=== PATIENT | male | born 1970 | race Caucasian/White ===

== ENCOUNTER 2020-12-23 23:54 | Emergency (ER) | payer OTHER, SELFPAY ==
--- NOTE | ~2020-12-23 | XR_ITS ---
EXAMINATION: XR wrist LT min 3V EXAM DATE: 12/24/2020 00:23 INDICATION: Pain/swelling on posterior lateral side of wrist after fall . Initial encounter. TECHNIQUE: Left wrist frontal, frontal with ulnar deviation, oblique and lateral projections obtained and reviewed. There is no prior study for comparison. FINDINGS: Left wrist scapholunate joint space is maintained. Probable acute triquetral fracture ident ified dorsally on the lateral projection. There is overlying soft tissue swelling. This finding has b een indicated, marked on the examination for review, clinical correlation. Surgical clips along the v olar aspect of the forearm. IMPRESSION: Probable acute left triquetral fracture dorsally. I discussed this with emergency room Dr. Bermeo at 12/24/2020 08:29 CDT . Reviewed, dictated and finalized at location A.
[2020-12-24 00:04] VITALS: BP 171/103; PULSE 96; RESP 17; TEMP 37.4; O2SAT 96
--- NOTE | 2020-12-24 00:16 | PC.NURSE ---
Patient taken to xray.
[2020-12-24] MEDS: HYDROcodone/acetaminophen (*CRX) 5-325 MG TABLET 1 TAB PO (00:22)
--- NOTE | 2020-12-24 01:18 | ED.UPPEXIN ---
HPI - Extremity Injury (Upper) General Chief Complaint: Extremity Injury, Upper Stated Complaint: I think i broke my wrist Time Seen by Provider: 12/24/20 00:04 Related Data Allergies Allergy/AdvReac Type Severity Reaction Status Date / Time Penicillins Allergy Mild Swelling Verified 12/24/20 00:08 lisinopril Allergy Swelling Verified 12/24/20 00:08 Course Vital Signs Vital signs: Vital Signs Temperature 99.3 F 12/24/20 00:04 Pulse Rate 96 12/24/20 00:04 Respiratory Rate 17 12/24/20 00:04 Blood Pressure 171/103 H 12/24/20 00:04 Pulse Oximetry 96 12/24/20 00:04 Temperature 99.3 F 12/24/20 00:04 Pulse Rate 96 12/24/20 00:04 Respiratory Rate 17 12/24/20 00:04 Blood Pressure 171/103 H 12/24/20 00:04 Pulse Oximetry 96 12/24/20 00:04 Discharge Plan Discharge Clinical Impression: Sprain and strain of wrist Patient Disposition: Home, Self-Care Condition: Stable Instructions: Wrist Sprain (ED) Additional Instructions: Obtain a wrist splint [facility] or [facility] to help immobilize your wrist. Continue to elevate the affected extremity and apply ice to help with swelling. Take ibuprofen to help with your swelling and pain but also take [place] as needed for breakthrough pain. If your pain is not improving you need to follow-up with your primary care physician. Prescriptions: New hydrocodone-acetaminophen 5-325 mg tablet 1 tablet PO Q6H PRN (Reason: pain) Qty: 12 RF: 0 ibuprofen 600 mg tablet 600 mg PO TID Qty: 21 RF: 0 Follow-up/Referrals: PHYSICIAN NOT ON STAFF,NONSTAFF [Primary Care Provider] - 1 Week
== END 2020-12-24 01:29 | disposition home or self-care (01) ==
PROVIDERS: Emergency Provider Emergency Medicine
DX: S63.502A Unspecified sprain of left wrist, initial encounter (principal); S66.912A Strain of unspecified muscle, fascia and tendon at wrist and hand level, left hand, initial encounter; R93.6 Abnormal findings on diagnostic imaging of limbs; W01.0XXA Fall on same level from slipping, tripping and stumbling without subsequent striking against object, initial encounter
CPT/HCPCS: 73110; 99283; A4565; A9270

== ENCOUNTER 2022-04-20 13:15 | Emergency (ER) | payer MEDICAID, SELFPAY ==
--- NOTE | ~2022-04-20 | CT_ITS ---
EXAMINATION: CT brain wo con DATE: 04/20/2022 14:50 INDICATION: Headache. Blurry vision. TECHNIQUE: Computed tomography (CT) of the head was performed without intravenous contrast. The mA wa s adjusted according to patient size. Iterative reconstruction technique was employed. The dose-lengt h product was 605.33 mGy-cm. COMPARISON: None FINDINGS: There is no intracranial hemorrhage, acute infarction, or abnormal intracranial mass lesion . The ventricles are normal in size. There is mild mucosal thickening in the paranasal sinuses. There is a trace right mastoid effusion. The orbits are normal. IMPRESSION: 1. Normal brain. Reviewed, dictated and finalized at location A. [facility] IMPRESSION: 1. Normal brain.
[2022-04-20 13:23] VITALS: BP 153/83; PULSE 78; RESP 18; TEMP 36.1; O2SAT 98
--- NOTE | 2022-04-20 14:45 | ED.HA ---
HPI - Headache General Chief Complaint: Headache Stated Complaint: blurred vision/headache Time Seen by Provider: 04/20/22 14:05 History of Present Illness HPI Narrative: Patient is a 52-year-old male presenting with headache and blurry vision. Patient states that for the last 2 to 3 months he has had intermittent headaches that are worse in the morning and evenings. States that he takes Excedrin during the day and this temporarily provides relief. States that the headaches have been increasing in frequency over the last several weeks. States that about a week ago he developed bilateral blurry vision that also comes and goes. He denies numbness, weakness, speech changes, ataxia, eye pain. He denies fevers or chills, nuchal rigidity, vomiting. States that he does sometimes feel nauseated in the morning. Denies chest pain, shortness of breath, cough, abdominal pain, dysuria, leg swelling. Related Data Allergies Allergy/AdvReac Type Severity Reaction Status Date / Time Penicillins Allergy Mild Swelling Verified 04/20/22 14:14 lisinopril Allergy Swelling Verified 04/20/22 14:14 Review of Systems Review of Systems: All systems reviewed & are unremarkable except as noted in HPI and below Exam Narrative: GENERAL: Well-appearing, well-nourished, and in no acute distress. HEAD: Normocephalic, atraumatic. EYES: PERRLA and EOMI. ENT: Nares clear, no rhinorrhea or epistaxis. Mucous membranes moist. NECK: Supple. CHEST: Clear to auscultation. No respiratory distress. HEART: Regular rate and rhythm. No murmur heard. Normal peripheral pulses. ABDOMEN: Soft, nontender, nondistended, normal active bowel sounds. EXTREMITIES: Normal range of motion. No edema. SKIN: Warm, dry, no rash. NEURO: No focal deficits. Alert and oriented x3. PSYCH: Normal mood and affect. Course Vital Signs Vital signs: Vital Signs Temperature 96.9 F L 04/20/22 13:23 Pulse Rate 78 04/20/22 13:23 Respiratory Rate 18 04/20/22 13:23 Blood Pressure 153/83 H 04/20/22 13:23 Pulse Oximetry 98 04/20/22 13:23 Oxygen Delivery Room Air 04/20/22 13:23 Temperature 96.9 F L 04/20/22 13:23 Pulse Rate 65 04/20/22 15:40 Respiratory Rate 19 04/20/22 15:40 Blood Pressure 139/85 04/20/22 15:40 Pulse Oximetry 98 04/20/22 15:40 Oxygen Delivery Room Air 04/20/22 13:23 MDM - Headache MDM Narrative Medical decision making narrative: Patient is a 52-year-old male presenting with intermittent headaches and blurry vision. Patient is hypertensive, his vitals are within normal limits. Exam is unremarkable. Neurologically intact. Visual acuity 20/20 OU, 20/30 OD, 20/[address] head shows no acute abnormalities. Blood work is unremarkable. Feel patient is safe for outpatient management. States he has not seen his PCP for many years and he needs a new one. We will provide new primary care number as well as ophthalmology. Lab Data 04/20/22 14:55 04/20/22 14:55 Labs: Lab Results 04/20/22 04/20/22 Range/Units 14:55 14:55 WBC 10.1 H (4.5-10.0) K/mm3 RBC 4.82 (4.6-6.20) M/mm3 Hgb 14.5 (14.0-18.0) g/dL Hct 44.2 (42.0-52.0) % MCV 91.7 (80-100) fl MCH 30.1 (26-34) pg MCHC 32.8 (32-36) g/dl RDW 13.6 (11.5-14.5) % Plt Count 293 (150-375) k/mm3 MPV 10.5 H (7.4-10.4) fl Immature Gran % (Auto) 0.4 (0-0.5) % Neut % (Auto) 59.2 (45.5-73.1) % Lymph % (Auto) 29.1 (18.3-44.2) % [place] % (Auto) 8.0 (2.6-8.5) % Eos % (Auto) 2.6 (0-4.4) % Baso % (Auto) 0.7 (0.2-1.2) % Lymph # (Auto) 2.93 (0.9-3.2) K/mm3 [place] # (Auto) 0.8 H (0.1-0.6) K/mm3 Eos # (Auto) 0.3 (0-0.3) K/mm3 Baso # (Auto) 0.1 (0.0-0.1) K/mm3 Abs Immat Gran (auto) 0.04 H (0.00-0.031) K/mm3 Absolute Neuts (auto) 6.0 (1.3-6.7) K/mm3 Absolute Nucleated RBC 0.0 (0.0-0.012) K/mm3 Nucleated RBC % 0.0 (0.0-0.2) % Sodium 139 (137-145) mmol/L Potassium 4.3 (3.4-5
[2022-04-20] MEDS: KETOROLAC 15 MG/ML VIAL (*BKC) IV PUSH (14:58)
[2022-04-20] MEDS: SODIUM CHLORIDE 0.9% IV 1,000 ML 999 ML IV CONT (14:58)
[2022-04-20 15:00] VITALS: PULSE 63; RESP 22; O2SAT 98
[2022-04-20 15:05] LABS: Basophils Absolute Auto 0.1 K/mm3 (0.0-0.1); Basophils Percent Auto 0.7 % (0.2-1.2); Eosinophils Absolute Auto 0.3 K/mm3 (0-0.3); Eosinophils Percent Auto 2.6 % (0-4.4); Hematocrit 44.2 % (42.0-52.0); Hemoglobin 14.5 g/dL (14.0-18.0); Immature Granulocyte Absolute 0.04 K/mm3 (0.00-0.031); Immature Granulocyte Percent A 0.4 % (0-0.5); Lymphocytes Absolute Auto 2.93 K/mm3 (0.9-3.2); Lymphocytes Percent Auto 29.1 % (18.3-44.2); Mean Corpuscular HGB Conc 32.8 g/dl (32-36); Mean Corpuscular Hemoglobin 30.1 pg (26-34); Mean Corpuscular Volume 91.7 fl (80-100); Mean Platelet Volume 10.5 fl (7.4-10.4); Monocytes Absolute Auto 0.8 K/mm3 (0.1-0.6); Neutrophils Percent Auto 59.2 % (45.5-73.1); Platelet Count Result 293 k/mm3 (150-375); Red Blood Count 4.82 M/mm3 (4.6-6.20); Red Cell Distribution Width 13.6 % (11.5-14.5); White Blood Count 10.1 K/mm3 (4.5-10.0)
[2022-04-20 15:26] LABS: Alanine Aminotransferase 37 U/L (6-50); Alkaline Phosphatase 60 U/L (38-126); Anion Gap 4 mmol/L (8-16); Aspartate Amino Transferase 31 U/L (17-59); Bilirubin,Total 0.4 mg/dL (0.2-1.3); Blood Urea Nitrogen 14 mg/dL (9-20); Calcium 8.7 mg/dL (8.4-10.2); Carbon Dioxide 31 mmol/L (22-30); Chloride 104 mmol/L (98-107); Estimated CRCL calculation 109 ml/min; Estimated Glomerular Filt Rate > 60; Glucose 87 mg/dL (65-110); Potassium 4.3 mmol/L (3.4-5.0); Sodium 139 mmol/L (137-145)
[2022-04-20 15:40] VITALS: BP 139/85; PULSE 65; RESP 19; O2SAT 98
[2022-04-20 16:15] VITALS: BP 130/83; PULSE 71; RESP 18; O2SAT 96
== END 2022-04-20 16:15 | disposition home or self-care (01) ==
PROVIDERS: Emergency Provider Emergency Medicine
DX: R51.9 Headache, unspecified (principal); H53.8 Other visual disturbances
CPT/HCPCS: 36415; 70450; 80053; 85025; 96361; 96365; 96375; 99284; J0131; J1885; J7030

== ENCOUNTER 2022-06-11 07:46 | Outpatient (CLI) | payer MEDICAID, SELFPAY ==
--- NOTE | ~2022-06-11 | CT_ITS ---
CT of the Abdomen and Pelvis: Indication: Right-sided bulging, hernia Technique: 2.5 mm axial scans were obtained through the abdomen and pelvis following intravenous adm inistration of 100 cc of Omnipaque 350. Dose reduction technique was used on this scan by utilizing a utomated exposure control and iterative reconstruction technique. The dose-length product (DLP) was 1 160.20 mGy-cm. Findings: Scans through the lung bases are unremarkable. The liver, spleen, pancreas, gallbladder, adrenals and kidneys are within normal limits. No evidence of aortic aneurysm. No lymphadenopathy. There are atherosclerotic calcifications of the aorta. No bowel obstruction or bowel wall thickening. There is no evidence to suggest acute appendicitis. Sm all fat-containing umbilical hernia noted. Images through the pelvis were performed. Fat-containing right inguinal hernia noted. Urinary bladder unremarkable. Prostate gland and seminal vesicles are unremarkable. No ascites. Impression: Small fat-containing right inguinal hernia. Small fat-containing umbilical hernia. Reviewed, dictated and finalized at [facility]. Impression: Small fat-containing right inguinal hernia. Small fat-containing umbilical hernia.
[2022-06-11 08:05] LABS: Estimated Glomerular Filt Rate > 60
== END 2022-06-11 07:47 | disposition home or self-care (01) ==
PROVIDERS: PCP Family Medicine; Visit Provider Surgery
DX: K40.90 Unilateral inguinal hernia, without obstruction or gangrene, not specified as recurrent (principal); K42.9 Umbilical hernia without obstruction or gangrene
CPT/HCPCS: 74177; Q9967

== ENCOUNTER 2022-07-19 15:30 | Outpatient (CLI) | payer OTHER, SELFPAY | END 2022-07-19 15:31 | disposition home or self-care (01) | LOC: ANHLAB 15:31 | PROVIDERS: PCP Family Medicine; Visit Provider Surgery | DX: K40.90 Unilateral inguinal hernia, without obstruction or gangrene, not specified as recurrent (principal); Z01.818 Encounter for other preprocedural examination | CPT/HCPCS: 36415; 86850; 86900; 86901 ==

== ENCOUNTER 2022-07-20 03:17 | Day surgery (SDC) | payer OTHER, SELFPAY ==
--- NOTE | 2022-07-16 16:55 | PM.SD2 ---
Same Day Admit/Disch: HPI History of Present Illness Chief complaint: right inguinal hernia and umbilical hernia Narrative: Yovani Helm Sr. is a 52 year old male who was seen in the office with bulge at the umbilicus that was getting bigger. He had also noticed a bulge and asymmetry in the right groin. Each of these can cause pain with coughing or straining. He was seen in the office and found to have both an umbilical hernia as well as a right inguinal hernia. He is taken to surgery now for robotic laparoscopic repair of his right inguinal hernia as well as open umbilical hernia repair with mesh. [facility] Past Medical History Medical History (Updated 07/20/22 @ 09:43 by Kee Willingham DO) Arthritis CAD (coronary artery disease) CVA (cerebral vascular accident) Heart attack HTN (hypertension) Surgical History Surgical History History of coronary artery bypass graft x 3 Family History Family History Father Hypertension Heart disease Mother Diabetes mellitus Hypertension Heart disease Social History Social History Smoking packs per day: 1.5 Smoking cigarettes per day: 30.0 Years smoked: 30 Smoking pack-years: 45.00 Smoking status: Former smoker Tobacco type: cigarettes Smoking end date: 04/01/17 Alcohol intake: current Substance use: never Lack of Transportation: No Lack of Food: Never True Current Housing: I Have Housing Concerned About Future Housing: No Difficulty Paying Gas/Electric Bills: No Difficulty Paying for Meds: No Currently Unemployed: No Education: High School Diploma/GED Difficulty w/ Childcare or Family Care: No Living arrangements: with family Gender identity (if verbalized by the patient): Male Spiritual care concerns: No Same Day Admit/Disch: Med Pre-admit Medications Home Medications Medication Instructions Recorded Confirmed Type ascorbic acid (vitamin C) 500 mg 500 mg PO BID 05/31/22 07/20/22 History capsule aspirin 81 mg tablet,delayed 81 mg PO DAILY 05/31/22 07/20/22 History release (Adult Aspirin Regimen) hydralazine 100 mg tablet 100 mg PO BID 05/31/22 07/20/22 History metoprolol succinate 100 mg 100 mg PO DAILY 05/31/22 07/20/22 History tablet,extended release 24 hr rosuvastatin 40 mg tablet 40 mg PO DAILY 05/31/22 07/20/22 History spironolactone 100 mg tablet 100 mg PO DAILY 05/31/22 07/20/22 History irbesartan 150 mg tablet 150 mg PO DAILY #30 tabs 07/18/22 07/20/22 Rx ketorolac 10 mg tablet 10 mg PO Q6H 4 days #16 tabs 07/20/22 Rx oxycodone-acetaminophen 5 mg-325 1 - 2 tablet PO Q6H PRN pain #15 07/20/22 Rx mg tablet (Percocet) tabs Exam Const: General: comfortable, no acute distress, alert and awake HENMT: Head: normocephalic and atraumatic Mouth: Yes Normal oral and palatal mucosa present Eyes: Conjunctivae: conjunctivae normal Pupils: Equal, round and reactive pupils present EOM: EOMs intact bilaterally Neck: Neck: normal visual inspection, no lymphadenopathy and nontender Chest: Other: Median sternotomy scar Resp: Effort & Inspection: normal respiratory effort Auscultation: clear to auscultation bilaterally Cardio: Rate: regular rate Rhythm: regular rhythm Heart sounds: no gallops, no murmurs and no rubs GI: Inspection: non-distended and visible herniation (Umbilical) GI Palp: Yes Soft to palpation, No Tenderness to palpation present (GI), No Hepatomegaly present, No Splenomegaly present and Yes Hernia present (Reducible umbilical hernia, 2 cm defect) : Male General Exam: Yes hernia (Reducible right inguinal hernia) Penis: Yes normal penis Scrotum: scrotum normal Testes: Testes normal Skin: Lesions: no lesions Rashes: no rashes Neuro: General: no focal motor deficits and CN's II-XI intact bilaterally Cranial nerves
[2022-07-18 17:28] VITALS: BMI 32.0
--- NOTE | 2022-07-18 17:56 | PC.NURSE ---
Report to the Outpatient Waiting Room, entrance under the green pavilion located off [facility], at time 0800 on date 07/20/22. Planned Procedure Time: 1000 Time changes happen often and if your time is changed the preop area will call you the afternoon before. - You and your visitor will be asked to self-screen and do not enter if you have any COVID symptoms. - A mask is optional within the hospital at this time. Patients may have clear liquids (water, carbonated beverages, clear teas, apple juice) until 3 hours prior to surgery with a maximum of 20 ounces. - No food from midnight until time of surgery - Infants may have breast milk until 4 hours before surgery, infant formula 6 hours prior to surgery. - Children will be allowed to drink immediately following surgery. If applicable, please bring a bottle or sippy cup to assist with drinking. Juice, water, soda, and popsicles are readily available. For infants on formula, please bring formula the day of surgery. Pacifiers are allowed. Take the following medications with a SIP of water the morning of surgery: _Metoprolol___ DO NOT STOP ANY OF YOUR OTHER PRESCRIPTION MEDICATIONS PRIOR TO SURGERY ?EXCEPT THE FOLLOWING Medications to discontinue per physician _Vitamin C Date to take last dose_07/18/22____ Please no make-up, nail sami, hairspray, perfume, deodorant, or body powder the day of surgery. No jewelry (including any body piercings) or valuables the day of surgery, leave them at home. Please take a shower or bath the night before, or the morning of, surgery with an antibacterial soap. Wear comfortable, loose fitting clothing. Children are encouraged to wear pajamas. - Jewelry must be removed prior to entering the operating room. Rings and piercings that are not removed may be cut off. - The hospital will not accept responsibility for valuables. - Please leave all valuables, including medications, at home the day of surgery. If you are going home after surgery, a licensed parts delivery driver must drive you home. - NO public transportation without another adult if you receive anesthesia. - We recommend that an adult stay with you for 24 hours following discharge. - We also recommend that you do not drive, make important decision, drink alcoholic beverages, or take any drugs that were not prescribed by your health care provider for at least 24 hours after your discharge time. For Pediatric surgeries, we recommend two adults accompany the child home. Follow any additional instructions given to you from your surgeon. If you or anyone in your household have experienced Covid symptoms in the past week, please notify your surgeon or the nurse liaison at the phone number below for possible testing. Telephone instructions given to _Yovani Helm_and asked if any additional questions and then verbalized understanding. Patient advised to call surgeon office or pre surgery nurse liaison [phone] if any additional questions.
[2022-07-20] VITALS (8 sets, daily range): BP systolic 126–152; BP diastolic 73–87; PULSE 58–72; RESP 12–18; TEMP 36.3–36.9; O2SAT 93–98
--- NOTE | ~2022-07-20 | XR_ITS ---
EXAMINATION: XR fluoroscopy no charge DATE: 07/20/2022 14:56 INDICATION: Lost needle TECHNIQUE: 2 fluoroscopic images of the central abdomen were obtained during procedure performed by Hieu Mae. Radiologist was not present for the imaging or procedure. The amount of fluoroscopy time use d during this procedure was 7.1 minutes. COMPARISON: None. FINDINGS: A curved suture needle projects over the paravertebral abdomen. No markers indicating the site to sug gest whether this is in the left or right abdomen. Likely laparoscopic ports instrumentation also pro ject over the central abdomen. The needle is not visualized on the final image and has likely been re moved. Correlate with procedure note for further detail. IMPRESSION: 1. Fluoroscopy utilized for identification of a lost needle in the central abdomen. See procedure not e for further detail. Reviewed, dictated and finalized at location A. IMPRESSION: 1. Fluoroscopy utilized for identification of a lost needle in the central abdo men. See procedure note for further detail.
--- NOTE | 2022-07-20 07:07 | ECG_ITS ---
Measurements Intervals [place] Rate: 57 P: 0 [place]: 187 QRS: 65 QRSD: 107 T: 60 QT: 417 QTc: 409 Interpretive Statements SINUS BRADYCARDIA OTHERWISE WITHIN NORMAL LIMITS NO PREVIOUS ECG AVAILABLE FOR COMPARISON Electronically Signed On 07-20-2022 15:30:06 CDT by Kayden Castillo M.D.
[2022-07-20] MEDS: ACETAMINOPHEN 500 MG TABLET 1000 MG PO (08:55)
[2022-07-20] MEDS: LACTATED RINGERS 1,000 ML 30 ML IV CONT ×3 (09:03→16:24)
[2022-07-20 09:35] LABS: Anion Gap 7 mmol/L (8-16); Blood Urea Nitrogen 18 mg/dL (9-20); Calcium 8.9 mg/dL (8.4-10.2); Carbon Dioxide 26 mmol/L (22-30); Chloride 104 mmol/L (98-107); Estimated CRCL calculation 137 ml/min; Estimated Glomerular Filt Rate > 60; Glucose 110 mg/dL (65-110); Potassium 4.5 mmol/L (3.4-5.0); Sodium 137 mmol/L (137-145)
--- NOTE | 2022-07-20 09:42 | WPDANESEPPF ---
Anes - Initial Pre Proc Eval Procedure: Operation Date: 07/20/22 10:00 Proposed Procedures p Robotic Laparoscopic Right Inguinal Hernia Repair, - Himanshu Mae MD s Open Umbilical Hernia Repair - Himanshu Mae MD Date/Time: 07/20/22 09:42 Surgeon: Himanshu Mae MD Pre Op Diagnosis: right inguinal hernia and umbilical hernia Patient Data Age: 52 Gender: M Height: 1.83 m Weight: 107.9 kg Last Vital Signs Temp 36.3 C L 07/20/22 09:07 Pulse 68 07/20/22 09:07 Resp 16 07/20/22 09:07 BP 152/87 H 07/20/22 09:07 Pulse Ox 96 07/20/22 09:07 O2 Del Method Room Air 07/20/22 09:07 Allergies Allergy/AdvReac Type Severity Reaction Status Date / Time Penicillins Allergy Mild Swelling Verified 07/20/22 08:27 lisinopril Allergy Swelling Verified 07/20/22 08:27 Home Medications Medication Instructions Recorded Confirmed Type ascorbic acid (vitamin C) 500 mg 500 mg PO BID 05/31/22 07/20/22 History capsule aspirin 81 mg tablet,delayed 81 mg PO DAILY 05/31/22 07/20/22 History release (Adult Aspirin Regimen) hydralazine 100 mg tablet 100 mg PO BID 05/31/22 07/20/22 History metoprolol succinate 100 mg 100 mg PO DAILY 05/31/22 07/20/22 History tablet,extended release 24 hr rosuvastatin 40 mg tablet 40 mg PO DAILY 05/31/22 07/20/22 History spironolactone 100 mg tablet 100 mg PO DAILY 05/31/22 07/20/22 History irbesartan 150 mg tablet 150 mg PO DAILY #30 tabs 07/18/22 07/20/22 Rx Laboratory Tests 07/20/22 08:56 Sodium 137 mmol/L mmol/L (137-145) Potassium 4.5 mmol/L mmol/L (3.4-5.0) Chloride 104 mmol/L mmol/L (98-107) Carbon Dioxide 26 mmol/L mmol/L (22-30) Anion Gap 7 mmol/L L mmol/L (8-16) BUN 18 mg/dL mg/dL (9-20) Creatinine 0.70 mg/dL mg/dL (0.7-1.3) Estim Creat Clear Calc 137 ml/min ml/min Estimated GFR > 60 (59 - ) Glucose 110 mg/dL mg/dL (65-110) Calcium 8.9 mg/dL mg/dL (8.4-10.2) Patient hx anesthesia problems: none Family hx anesthesia problems: none Results Review: All pre-operative results and documents have been reviewed as part of the pre-operative evaluation. [facility] Past Medical History Medical History (Updated 07/20/22 @ 09:43 by Kee Willingham DO) Arthritis CAD (coronary artery disease) CVA (cerebral vascular accident) Heart attack HTN (hypertension) Surgical History Surgical History History of coronary artery bypass graft x 3 Family History Family History Father Hypertension Heart disease Mother Diabetes mellitus Hypertension Heart disease Social History Social History Smoking packs per day: 1.5 Smoking cigarettes per day: 30.0 Years smoked: 30 Smoking pack-years: 45.00 Smoking status: Former smoker Tobacco type: cigarettes Smoking end date: 04/01/17 Alcohol intake: current Substance use: never Lack of Transportation: No Lack of Food: Never True Current Housing: I Have Housing Concerned About Future Housing: No Difficulty Paying Gas/Electric Bills: No Difficulty Paying for Meds: No Currently Unemployed: No Education: High School Diploma/GED Difficulty w/ Childcare or Family Care: No Living arrangements: with family Gender identity (if verbalized by the patient): Male Spiritual care concerns: No Anes - Eval Final PreProcedure Day of Procedure 07/20/22 09:42 Patient weight: obese Heart: regular rate and rhythm Lungs: clear to auscultation Airway: Mallampati scale class II Neurological: alert and oriented Last oral intake: >/= 8 hours ASA classification: III Emergent: no Anesthetic plan: proceed Anesthesia type and monitoring: general ETT and standard monitoring Results Review: All pre-operative results and documents have been reviewed as part
[2022-07-20] MEDS: KETOROLAC 15 MG/ML VIAL (*BKC) IV PUSH (09:45)
--- NOTE | 2022-07-20 10:25 | SUR.PREOP ---
1015- PT UPDATED ON DELAY FOR SURGERY. EXPLAINED IT COULD BE A HOUR OR MORE.
--- NOTE | 2022-07-20 10:29 | WPDHPUPDATE1 ---
History and Physical Update Update Date/Time: 07/20/22 10:29 History and Physical has been reviewed, including an updated exam of the patient. There are NO changes in the patient's condition. Risks, benefits, and alternatives have been discussed and questions answered. Patient agrees to proceed with procedure.
[2022-07-20] MEDS: ceFAZolin 2 GM/D5W 50 ML 2 GM/50 ML BAG IVPB (12:49)
[2022-07-20] MEDS: BUPIVACAINE/EPINEPHRINE 0.25% 10 ML VIAL 30 ML INFILTRATE (13:26)
--- NOTE | 2022-07-20 15:52 | W.PM.PROC2 ---
Procedure Note - Detailed Date of Procedure 07/20/22 Pre-op Diagnosis right inguinal hernia and umbilical hernia Post-op Diagnosis Same Procedure Performed Robotic laparoscopic repair right inguinal hernia with 17 x 12 cm 3D max mesh; open repair 1.5 cm umbilical hernia with 4.[address] underlay mesh patch Surgeon Himanshu Mae MD Hot Dip Plating Supervisor Wayne RODRÍGUEZ, Gregorio MANNINGA Anesthesia General and Local (0.5% Marcaine with epinephrine) Indications Patient is had pain in the umbilicus and also noticed a bulge in the right groin. CT scan showed fat containing hernias at both sites. He was seen in the office and found to have a large right inguinal hernia as well as a reducible umbilical hernia. He is taken to surgery now for robotic laparoscopic right inguinal hernia repair as well as open umbilical hernia repair with mesh. Findings He had a direct right inguinal hernia. The umbilical hernia was a 1.5 cm defect. Description of Procedure Patient was taken to surgery and induced into general anesthesia. The abdomen is prepped and draped. Trocars were placed in the upper abdomen in the usual fashion. A 5 mm optical trocar was placed 1st to gain access to the peritoneal cavity. After adequate insufflation, an 8 mm robotic trocar was placed in the right upper quadrant. The camera was then changed to this trocar. An 8 mm robotic trocar was placed in the left upper quadrant. Finally the 5 mm optical trocar was exchanged for an 8 mm robotic trocar in the upper midline. The robot was brought into the field. The camera was docked and targeted. The other 2 instruments were placed. The surgeon went to the console. A peritoneal flap was started laterally about 10 cm above the hernia defect. The flap was then created moving from anterior to posterior. We dissected medially and dissected down to the pubis exposing both the left and the right rectus muscles. The pubis was exposed as well. Dissection of the lateral aspect of the flap was taken down beyond the pectinate line. There was a lot of fatty tissue overlying the inferior epigastric vessels. One of the branches of these vessels tore and required cautery. The direct hernia was reduced and the transversalis fascia was allowed to return to the inguinal canal. The fatty tissue of the direct hernia and the peritoneum was dissected at least 2 cm posterior to the pubis. We then dissected any remaining fatty tissue as well as the peritoneum off the cord vessels. The 3DMax mesh was then placed in the inguinal canal. It was sutured to the pubis with 3-0 Vicryl. Two additional 3-0 Vicryl sutures were placed anteriorly to secure the mesh to the anterior abdominal wall as well. Looking for the V lock suture planned to be used to close the peritoneal defect was difficult. We 1st looked thoroughly for this suture and needle in and around the area of the dissection. It was not able to be found. We undocked the camera and looked around more thoroughly. Still no sign of the suture or the needle was noted. The surgeon then returned to the operative field and we completely undocked all the robotic arms. Using the camera we were still unable to find the needle. Fluoroscopy was brought in and the needle was located. Eventually the needle was found located deep between 2 loops of small bowel mesentery in the left mid to upper abdomen. The needle and suture were retrieved intact. We then read docked the robot and replaced all the robotic instruments. The surgeon went back to the console. The area of the repair was reviewed. The mesh was in good position with no peritoneum causing the lower edge of the mesh to buckle. The peritoneal flap was then closed with running 3-0 V lock suture. The V lock suture was then removed. We evacuated CO2 and undocked the robot, removing the instruments. The trocars were removed as well. The surgeon scrubbed back into the operating field. We turned our attention to the umbi
== END 2022-07-20 17:44 | disposition home or self-care (01) ==
PROVIDERS: Anesthesiology; PCP Family Medicine; Visit Provider Surgery
PROC: 8E0Y4CZ Robotic Assisted Procedure of Lower Extremity, Percutaneous Endoscopic Approach (ICD-10-PCS; CPT 49650; principal; 2022-07-20 10:00)
PROC: (CPT 49650; 2022-07-20 10:00)
DX: K40.90 Unilateral inguinal hernia, without obstruction or gangrene, not specified as recurrent (principal); K42.9 Umbilical hernia without obstruction or gangrene; I10 Essential (primary) hypertension; I25.10 Atherosclerotic heart disease of native coronary artery without angina pectoris; I25.2 Old myocardial infarction; Z86.73 Personal history of transient ischemic attack (TIA), and cerebral infarction without residual deficits; Z95.1 Presence of aortocoronary bypass graft; Z87.891 Personal history of nicotine dependence; Z79.82 Long term (current) use of aspirin; E66.9 Obesity, unspecified; Z68.32 Body mass index [BMI] 32.0-32.9, adult
CPT/HCPCS: 49650; 49591; S2900; 36415; 80048; 93005; 99199; A9270; C1781; J0690; J1100; J1885; J2250; J2405; J2704; J3010; J7120

== ENCOUNTER 2023-12-06 10:00 | Emergency (ER) | payer OTHER, SELFPAY ==
--- NOTE | ~2023-12-06 | XR_ITS ---
EXAMINATION: XR finger 3rd RT min 2V DATE: 12/06/2023 10:37 INDICATION: Blunt trauma with laceration to the right third distal phalanx TECHNIQUE: Dorsal palmar, lateral and 2 oblique views of the right third digit were obtained COMPARISON: None FINDINGS: There is a laceration with prominent soft tissue flap at the palmar aspect of the right third distal phalanx. No radiopaque foreign bodies. Old fifth metacarpal fracture which is healed with some volar angulation. Alignment is otherwise normal. No acute fracture. Minimal osteoarthritis at a few of the distal interphalangeal joints. IMPRESSION: 1. . Laceration at the volar aspect of the right third distal phalanx with no radiopaque foreign bodi es or acute osseous abnormality. Reviewed, dictated and finalized at location A. IMPRESSION: 1. . Laceration at the volar aspect of the right third distal phalanx with no r adiopaque foreign bodies or acute osseous abnormality.
--- NOTE | 2023-12-06 10:26 | ED.WOUNDLAC ---
HPI - Wound/Laceration General Chief Complaint: Wound/Laceration Stated Complaint: R middle finger lac Time Seen by Provider: 12/06/23 10:12 Source: patient Mode of arrival: ambulatory Limitations: no limitations History of Present Illness HPI narrative: this is a 53-year-old male that presents to the emergency department for laceration to his right middle finger. Sustained just prior to arrival. Reports he got his finger caught between 2 rocks. Reports bleeding and pain to the area. Reports he is up-to-date on his tetanus vaccination. Denies decreased range of motion or numbness. Related Data Home Medications Medication Instructions Recorded Confirmed ascorbic acid (vitamin C) 500 mg 500 mg PO BID 05/31/22 03/28/23 capsule aspirin 81 mg tablet,delayed 81 mg PO DAILY 05/31/22 03/28/23 release (Adult Aspirin Regimen) metoprolol succinate 100 mg 100 mg PO DAILY 05/31/22 03/28/23 tablet,extended release 24 hr rosuvastatin 40 mg tablet 40 mg PO DAILY 05/31/22 03/28/23 spironolactone 100 mg tablet 100 mg PO DAILY 05/31/22 03/28/23 Allergies Allergy/AdvReac Type Severity Reaction Status Date / Time Penicillins Allergy Mild Swelling Verified 03/28/23 16:20 lisinopril Allergy Swelling Verified 03/28/23 16:20 Review of Systems Review of Systems: CONSTITUTIONAL: Denies fever SKIN: Reports laceration MUSCULOSKELETAL: Denies joint pain NEUROLOGIC: Denies numbness All systems reviewed & are unremarkable except as noted in HPI and below PMFSH Past Medical History Medical History Arthritis CAD (coronary artery disease) CVA (cerebral vascular accident) Heart attack HTN (hypertension) Surgical History Surgical History H/O inguinal hernia repair marin lap rep [facility], open umb her rep 07/20/22 History of coronary artery bypass graft x 3 S/P hernia surgery Family History Family History Father Hypertension Heart disease Mother Diabetes mellitus Hypertension Heart disease Social History Social History Smoking packs per day: 1.5 Smoking cigarettes per day: 30.0 Years smoked: 30 Smoking pack-years: 45.00 Smoking status: Former smoker Tobacco type: cigarettes Smoking end date: 04/01/17 Alcohol intake: current Alcohol use details: Socially Substance use: never Do You Feel Safe in your Home?: Yes Lack of Transportation: No Lack of Food: Never True Current Housing: I Have Housing Concerned About Future Housing: No Difficulty Paying Gas/Electric Bills: No Difficulty Paying for Meds: No Currently Unemployed: No Education: High School Diploma/GED Difficulty w/ Childcare or Family Care: No Living arrangements: with family Gender identity (if verbalized by the patient): Male Spiritual care concerns: No Exam Narrative: GENERAL: Well-appearing, well-nourished, and in no acute distress. HEAD: Normocephalic, atraumatic. EYES: EOMI. EXTREMITIES: Normal range of motion. 2cm flap laceration to the right 3rd finger distal phalanx palmar aspect. Normal capillary refill SKIN: Warm, dry, no rash. NEURO: No focal deficits. Alert and oriented x3. PSYCH: Normal mood and affect Course Course Emergency Course: Patient educated on further wound care Vital Signs Vital signs: Vital Signs Temperature 98 F 12/06/23 10:35 Pulse Rate 70 12/06/23 10:35 Respiratory Rate 16 12/06/23 10:35 Blood Pressure 161/67 H 12/06/23 10:35 Pulse Oximetry 95 12/06/23 10:35 Oxygen Delivery Room Air 12/06/23 10:35 Temperature 98 F 12/06/23 10:35 Pulse Rate 70 12/06/23 10:35 Respiratory Rate 16 12/06/23 10:35 Blood Pressure 161/67 H 12/06/23 10:35 Pulse Oximetry 95 12/06/23 10:35 Oxygen Delivery Room Air 12/06/23 10:35 Pr
[2023-12-06 10:35] VITALS: BP 161/67; PULSE 70; RESP 16; TEMP 36.6; O2SAT 95
== END 2023-12-06 12:38 | disposition home or self-care (01) ==
PROVIDERS: Emergency Provider Physician Assistant; PCP Family Medicine
DX: S61.212A Laceration without foreign body of right middle finger without damage to nail, initial encounter (principal); Z79.82 Long term (current) use of aspirin; I25.10 Atherosclerotic heart disease of native coronary artery without angina pectoris; I10 Essential (primary) hypertension; Z86.73 Personal history of transient ischemic attack (TIA), and cerebral infarction without residual deficits; Z87.891 Personal history of nicotine dependence
CPT/HCPCS: 12001; 73140; 99283

== ENCOUNTER 2024-07-27 19:02 | Emergency (ER) | payer SELFPAY ==
[2024-07-27 19:13] VITALS: BP 172/101; PULSE 78; RESP 18; TEMP 36.8; O2SAT 98
--- NOTE | 2024-07-27 19:24 | ED.EYEPROB ---
HPI - Eye Problem General Chief complaint: Eye Problems Stated complaint: rust in right eye Time Seen by Provider: 07/27/24 19:35 Source: patient and RN notes reviewed Mode of arrival: ambulatory Limitations: no limitations History of Present Illness HPI Narrative: 54-year-old male presents concern for foreign body in his eye. Reports 2 days ago he got rest in his eye when he was flushing a transmission. Reports he rinsed out the eye but he still has irritation and watery drainage. He has been using Visine. chief complaint: eye redness Related Data Home Medications ?Medication ?Instructions ?Recorded ?Confirmed ?Last Taken ?Type ascorbic acid (vitamin C) 500 mg 500 mg PO BID 05/31/22 03/28/23 07/17/22 History capsule aspirin 81 mg tablet,delayed 81 mg PO DAILY 05/31/22 03/28/23 07/19/22 08:00 History release (Adult Aspirin Regimen) metoprolol succinate 100 mg 100 mg PO DAILY 05/31/22 03/28/23 07/19/22 08:00 History tablet,extended release 24 hr rosuvastatin 40 mg tablet 40 mg PO DAILY 05/31/22 03/28/23 07/19/22 19:00 History spironolactone 100 mg tablet 100 mg PO DAILY 05/31/22 03/28/23 07/19/22 08:00 History Allergies Allergy/AdvReac Type Severity Reaction Status Date / Time Penicillins Allergy Mild Swelling Verified 03/28/23 16:20 lisinopril Allergy Swelling Verified 03/28/23 16:20 Review of Systems Review of Systems: CONSTITUTIONAL: Denies malaise, chills, sweats, or fever. EYES: Denies visual changes. Reports right eye redness, irritation, discharge. ENT: Denies rhinorrhea, congestion, sinus pain, otalgia or sore throat. SKIN: Denies rash or itching. NEUROLOGIC: Denies numbness, weakness, or headache. PSYCHIATRIC: Denies anxiety or depression. All systems reviewed & are unremarkable except as noted in HPI and below PMFSH Past Medical History Medical History Arthritis CAD (coronary artery disease) CVA (cerebral vascular accident) Heart attack HTN (hypertension) Surgical History Surgical History H/O inguinal hernia repair marin lap rep [facility], open umb her rep 07/20/22 History of coronary artery bypass graft x 3 S/P hernia surgery Family History Family History Father Hypertension Heart disease Mother Diabetes mellitus Hypertension Heart disease Social History Social History Smoking packs per day: 1.5 Smoking cigarettes per day: 30.0 Years smoked: 30 Smoking pack-years: 45.00 Smoking status: Former smoker Tobacco type: cigarettes Smoking end date: 04/01/17 Alcohol intake: current Alcohol use details: Socially Substance use: never Do You Feel Safe in your Home?: Yes Lack of Transportation: No Lack of Food: Never True Current Housing: I Have Housing Concerned About Future Housing: No Difficulty Paying Gas/Electric Bills: No Difficulty Paying for Meds: No Currently Unemployed: No Education: High School Diploma/GED Difficulty w/ Childcare or Family Care: No Living arrangements: with family Gender identity (if verbalized by the patient): Male Spiritual care concerns: No Comments At time of signature, agree with nursing past medical, surgical, social and family history. There is no relevant family history pertinent to the presenting complaint Exam Narrative: GENERAL: Well-appearing, well-nourished, and in no acute distress. HEAD: Normocephalic, atraumatic. EYES: PERRLA, sclera clear, and EOMI. No nystagmus. Right sclera and conjunctivae injected with watery drainage, foreign body noted upon Wood's lamp exam. Upper and lower eyelid unremarkable, no periorbital edema noted ENT: Nares clear, turbinates pink, no rhinorrhea or epistaxis. Mucous membranes moist. TM pearly milton with sharp light reflex bilaterally; no tragal tenderness. NECK: Supple. CHEST: No respiratory distress. Speaks in full sentences. HEART: Regular rate and rhythm. SKIN: Warm, dry, no visible rash. NEURO: Alert and oriented x3. PSYCH: Normal mood and affect Course Course Emergency Course: Patient is aware of diagnosis, understands and agrees to treatment plan. Anticipatory guidance given. Patient agrees to follow-up as directed and is aware of reasons to seek care at the emergency department. Portions of this record may have been created with voice recognition software Level of Care: Express Care Visit Vital Signs Vital signs: Vital Signs Temperature 98.3 F 07/27/24 19:13 Pulse Rate 78 07/27/24 19:13 Respiratory Rate 18 07/27/24 19:13 Blood Pressure 172/101 H 07/27/24 19:13 Pulse Oximetry 98 07/27/24 19:13 Oxygen Delivery Room Air 07/27/24 19:13 Temperature 98.3 F 07/27/24 19:13 Pulse Rate 78 07/27/24 19:13 Respiratory Rate 18 07/27/24 19:13 Blood Pressure 172/101 H 07/27/24 19:13 Pulse Oximetry 98 07/27/24 19:13 Oxygen Delivery Room Air 07/27/24 19:13 Reviewed. Procedures FB Removal Eye Foreign Body #1: Time Out performed: Yes Location: eye (R) Topical anesthetic used: tetracaine Foreign body: metal Evidence of corneal penetration: Yes Technique: irrigation and needle Procedure performed under: direct visualization with magnification Post-procedure medication: ophthalmic antibiotic Patient tolerated procedure: well Foreign Body Removal Narrative: Foreign body removed Other Procedure Procedure 1: Other Procedure: Tetracaine 1 gtt instilled in right eye, fluorescein stain applied. Metal foreign body noted imbedded in the cornea at approximately 5 o'clock in relation to the pupil. Eye washed with NS 100 ml. No foreign bodies or Ximena sign noted. MDM - Eye Problem MDM Narrative Medical decision making narrative: Consideration of the following conditions may be warranted for the presenting problem, they are not final diagnoses: Bacterial conjunctivitis, allergic conjunctivitis, viral conjunctivitis, foreign body, blepharitis, chalazion, hordeolum, corneal abrasion, preseptal cellulitis, orbital cellulitis. No evidence of proptosis, ophthalmoplegia, vision loss, pain with eye movement. Exam findings show no acute concerns or changes; patient is non-toxic appearing and is in no distress. Patient is appropriate for outpatient treatment and follow-up. Critical Care Time Critical Care Time Critical Care Time: No Discharge Plan Discharge Clinical Impression: Foreign body Patient Disposition: Home Condition: Stable Instructions: How to Use Eye Drops (ED), Eye Foreign Body (ED) Additional Instructions: Do not touch or rub your eye. Use a cool washcloth on your eye for comfort Use eyedrops as directed You may take Tylenol or ibuprofen for pain Follow-up with PCP or sales promotion manager if condition is not improving in 2-3days. Go to the emergency room if you have pain behind your eye, pressure behind your eye, difficulty seeing, or other severe symptoms Patient Language: Pashto Prescriptions: New polymyxin B sulf-trimethoprim 10,000 unit- 1 mg/mL drops 1 drp RIGHT EYE Q3H 7 Days Qty: 10 0RF Rx Instructions: while awake; do not exceed 6 doses in 24 hours No Action aspirin [Adult Aspirin Regimen] 81 mg tablet,delayed release (DR/EC) 81 mg PO DAILY ascorbic acid (vitamin C) 500 mg capsule 500 mg PO BID metoprolol succinate 100 mg tablet extended release 24 hr 100 mg PO DAILY rosuvastatin 40 mg tablet 40 mg PO DAILY spironolactone 100 mg tablet 100 mg PO DAILY irbesartan 150 mg tablet 150 mg PO DAILY Qty: 30 0RF Rx Instructions: LAST REFILL UNTIL SEE Follow-up/Referrals: PHYSICIAN,ANIMAL LABORATORY TECHNICIAN [Primary Care Provider] - Time of Disposition: 19:52
== END 2024-07-27 19:57 | disposition home or self-care (01) ==
PROVIDERS: Emergency Provider Nurse Practitioner
DX: T15.01XA Foreign body in cornea, right eye, initial encounter (principal); W44.8XXA Other foreign body entering into or through a natural orifice, initial encounter; I25.10 Atherosclerotic heart disease of native coronary artery without angina pectoris; I10 Essential (primary) hypertension; I25.2 Old myocardial infarction; Z86.73 Personal history of transient ischemic attack (TIA), and cerebral infarction without residual deficits; Z95.1 Presence of aortocoronary bypass graft; Z87.891 Personal history of nicotine dependence
CPT/HCPCS: 99213; A9270; G0463